=== PATIENT | male | born 1955 | race Caucasian/White ===

== ENCOUNTER 2018-04-22 19:09 | Emergency (ER) | payer MEDICARE ==
[2018-04-22] MEDS ORDERED: solu-MEDROL 125 MG IV ONE (19:48)
[2018-04-22] MEDS ORDERED: BENADRYL 50 MG/ML IM ONE (19:48)
[2018-04-22] MEDS ORDERED: EPINEPHRINE 1MG/ML AMP IM ONE (19:48)
--- NOTE | 2018-04-22 19:53 | ERPHSYRPT ---
- History of Present Illness Time Seen by Provider: 04/22/18 19:36 Source: patient Exam Limitations: no limitations Patient Subjective Stated Complaint: Woke up with swollen bottom lip, at 1800 swelling on agustín jaw, soreness with palpatation, denies eating or exposed to anything new Triage Nursing Assessment: Pt a/o, ambulates per self, agustín swelling in jaw area and bottom lip, denies pain, denies numbness, denies SOB, denies dysphagia, breath sounds clear, Physician History: This is a 62-year-old white male with history of COPD, bronchitis, high blood pressure, GERD, He arrives with complaint of swelling in his lips since this morning now having swelling bilateral lower jaw he is not having any shortness of breath his gave him Benadryl around 3:00 this afternoon. Past medical history includes COPD, bronchitis, high blood pressure, GERD, hernia, arthritis, cardiomyopathy Past surgical history includes cardiac catheterization, hernia repair, vasectomy Social history patient denies tobacco alcohol or illicit drug use Timing/Duration: today (7:00 this morning) Severity: moderate Modifying Factors: Improves With: other (patient took Benadryl 50 mg at around 3 :00 this afternoon) Associated Symptoms: No nausea, No vomiting, No abdominal pain, No shortness of breath, No heartburn, No diaphoresis, No cough, No chills, No chest pain, No fever, No headaches, No loss of appetite, No malaise, No rash, No syncope, No seizure (Illnesses EKG before), No weakness Allergies/Adverse Reactions: oxytetracycline [From Terramycin] Allergy (Verified 02/10/15 22:24) oxytetracycline HCl [From Terramycin] Allergy (Verified 02/10/15 22:24) Home Medications: Aspirin 81 gm Chew [Baby Aspirin 81 mg Chew] 81 mg PO DAILY 02/11/15 [ History] Isosorbide Mononitrate 30 mg [Imdur 30 MG] 30 mg PO DAILY 02/11/15 [History ] Lisinopril 10 mg [Zestril 10 MG] 10 mg PO DAILY 02/11/15 [History] Albuterol Common Canister [Proventil Common Canister] 1 puff IH UD PRN 11/01 [History] Tamsulosin HCl 0.4 mg PO DAILY 04/22/18 [History] Hx Tetanus, Diphtheria Vaccination/Date Given: Yes Hx Influenza Vaccination/Date Given: Yes Hx Pneumococcal Vaccination/Date Given: Yes - Review of Systems Constitutional: No Fever, No Chills Eyes: No Symptoms Ears, Nose, & Throat: No Symptoms, Other (swelling of the lips bilateral lower jaw) Respiratory: No Cough, No Dyspnea Cardiac: No Chest Pain, No Edema, No Syncope Abdominal/Gastrointestinal: No Abdominal Pain, No Nausea, No Vomiting, No Diarrhea Genitourinary Symptoms: No Dysuria Musculoskeletal: No Back Pain, No Neck Pain Skin: No Rash Neurological: No Dizziness, No Focal Weakness, No Sensory Changes Psychological: No Symptoms Endocrine: No Symptoms All Other Systems: Reviewed and Negative (normal limits with a can ) - Past Medical History Pertinent Past Medical History: Yes Neurological History: No Pertinent History ENT History: No Pertinent History Cardiac History: Hypertension Respiratory History: Bronchitis, COPD, Emphysema Endocrine Medical History: No Pertinent History Musculoskeletal History: Arthritis GI Medical History: GERD, Hernia History: No Pertinent History Psycho-Social History: No Pertinent History Male Reproductive Disorders: Prostate Problems Other Medical History: CARDIOMYOPATHY - Past Surgical History Past Surgical History: Yes Neuro Surgical History: No Pertinent History Cardiac: Cardiac Catheterization Respiratory: No Pertinent History Gastrointestinal: Hernia Repair Genitourinary: No Pertinent History Musculoskeletal: No Pertinent History Male Surgical History: Vasectomy Other Surgical History: STRESS TEST ECHO AND HEART CATH inquinal hernia - Social History Smoking Status: Former smoker How long have you smoked: 30 yrs Exposure to second hand smoke: Yes Drug Use: none Patient Lives Alone: No - Nursing Vital Signs Nursing Vital Signs: Initial Vital Signs Temperature 98.4 F 04/22/18 19:17 Pulse Rate 103 H 04/22/18 19:17 Respiratory Rate 22 04/22/18 19:17 Blood Pressure 120/84 04/22/18 19:17 O2 Sat by Pulse Oximetry 98 04/22/18 19:17 Pain Scale Pain Intensity 0 - Physical Exam General Appearance: no apparent distress, alert, other (swelling of the lips and bilateral submandibular region) Eye Exam: PERRL/EOMI, eyes nml inspection Ears, Nose, Throat Exam: pharynx normal, moist mucous membranes, other ( swelling of the lips, bilateral submandibular region) Neck Exam: normal inspection Respiratory Exam: normal breath sounds, lungs clear, No respiratory distress Cardiovascular Exam: regular rate/rhythm, normal heart sounds, normal peripheral pulses, capillary refill <2 sec Gastrointestinal/Abdomen Exam: soft, normal bowel sounds, No tenderness, No mass Back Exam: normal inspection, normal range of motion, No CVA tenderness, No vertebral tenderness Extremity Exam: normal inspection, normal range of motion, pelvis stable Neurologic Exam: alert, oriented x 3, cooperative, validation engineer II-XII nml as tested, normal mood/affect, nml cerebellar function, nml station & gait, sensation nml, No motor deficits Skin Exam: normal color, warm, dry, No rash SpO2 Interpretation: normal (98%), borderline oxygenation SpO2: 98 Oxygen Delivery: Room Air Ordered Tests: Active Orders 24 hr Category Date Time Status EKG-ER Only STAT Care 04/22/18 19:49 Active IV Insertion STAT Care 04/22/18 19:48 Active Medication Summary Generic Name Dose Route Start Last Admin Trade Name Freq PRN Reason Stop Dose Admin Sodium Chloride 1,000 mls @ 100 mls/hr 04/22/18 20:00 04/22/18 20:07 Sodium Chloride 0.9% 1000 Ml IV 05/22/18 19:59 100 mls/hr .Q10H JOHN Administration Discontinued Medications Generic Name Dose Route Start Last Admin Trade Name Freq PRN Reason Stop Dose Admin Diphenhydramine HCl 50 mg 04/22/18 19:48 04/22/18 20:07 Benadryl 50 Mg/Ml IM 04/22/18 19:49 50 mg STAT ONE Administration Diphenhydramine HCl Confirm 04/22/18 20:01 Benadryl 50 Mg/Ml Administered 04/22/18 20:02 Dose 50 mg .ROUTE .STK-MED ONE Epinephrine HCl 0.3 mg 04/22/18 19:48 04/22/18 20:03 Epinephrine 1mg/Ml Amp IM 04/22/18 19:49 0.3 mg STAT ONE Administration Epinephrine HCl Confirm 04/22/18 20:01 Epinephrine 1mg/Ml Amp Administered 04/22/18 20:02 Dose 1 mg .ROUTE .STK-MED ONE Methylprednisolone Sodium Succinate 125 mg 04/22/18 19:48 04/22/18 20:07 Solu-Medrol 125 Mg IV 04/22/18 19:49 125 mg STAT ONE Administration Methylprednisolone Sodium Succinate Confirm 04/22/18 20:01 Solu-Medrol 125 Mg Administered 04/22/18 20:02 Dose 125 mg .ROUTE .STK-MED ONE - Progress Progress: improved Progress Note: 04/22/18 21:12 This is a 62-year-old white male with history of COPD bronchitis, high blood pressure. He arrives with complaint of swelling of his lips since this morning and swelling in the bilateral submandibular area since this afternoon. Patient is on lisinopril he also states he ate a turn up last night. Patient with moderate edema to his lips airway was clear he did have some edema bilateral submandibular region. Patient's EKG sinus rhythm, left axis deviation [address] or T wave changes. Patient is given IV normal saline at 100 mL per hour he is given Solu-Medrol 125 mg IV Benadryl 50 mg IM and epinephrine 0.3 mg IM. He is feeling better he has a decreasing edema to his lips and to his bilateral submandibular area. Tongue does not appear to be swollen or at least with minimal swelling airway is clear. Will plan to discharge patient. I have told the patient not to eat anymore turnips. I've also told him to not take anymore lisinopril. Diagnosis facial swelling. Angioedema. Patient will be requested to take Benadryl 50 mg orally every 6 hours for 2-3 days, plenty of fluids, stop lisinopril. He is to contact Dr. Figueroa tomorrow morning. He is to return if any problems. - Departure Time of Disposition: 21:14 Departure Disposition: Home Clinical Impression: Facial swelling Angioedema Qualifiers: Encounter type: initial encounter Qualified Code(s): T78.3XXA - Angioneurotic edema, initial encounter Condition: Fair Critical Care Time: No Referrals: DOROTA FIGUEROA MD [Primary Care Provider] - Additional Instructions: Return home. Plenty of fluids. Benadryl 50 mg every 6 hours for 2-3 days. Tapering dose of prednisone as directed. Do not take any lisinopril until you discuss case with Dr. Figueroa. Do not eat anymore turnips. Return for any problems. Follow-up with Dr. Figueroa call in the morning return for acute distress or severe symptoms or any problems or any increasing swelling or difficulty breathing.
[2018-04-22] MEDS ORDERED: Sodium Chloride 0.9% 1000 ML 1,000 ML IV SCH (20:00)
[2018-04-22] MEDS ORDERED: Sodium Chloride 0.9% 1000 ML 1,000 ML ONE (20:01)
[2018-04-22] MEDS ORDERED: EPINEPHRINE 1MG/ML AMP ONE (20:01)
[2018-04-22] MEDS ORDERED: BENADRYL 50 MG/ML ONE (20:01)
[2018-04-22] MEDS ORDERED: solu-MEDROL 125 MG ONE (20:01)
[2018-04-22 21:05] VITALS: BP 120/70
[2018-04-22 21:24] VITALS: PULSE 92; O2SAT 95
== END 2018-04-22 21:34 | disposition home or self-care (01) ==
LOC: ED 19:09
DX: T78.3XXA Angioneurotic edema, initial encounter (principal); R22.0 Localized swelling, mass and lump, head; I10 Essential (primary) hypertension; Z79.899 Other long term (current) drug therapy
CPT/HCPCS: 93005; 96360; 96372; 96374; 99284; J0171; J1200; J2930

== ENCOUNTER 2019-03-15 16:14 | Emergency (ER) | payer MEDICARE ==
--- NOTE | 2019-03-15 16:18 | ERPHSYRPT ---
- History of Present Illness Time Seen by Provider: 03/15/19 16:18 Source: patient, family Exam Limitations: no limitations Physician History: 63 y/o white male with h/o htn and copd presents with 4 week h/o left flank pain and left lower lumbar pain. pt has had a normal cardiac cath in recent past. yesterday he was experiencing chest pain and that has resolved. Timing/Duration: week(s) (4 ), intermittent, worse Method of Injury: unknown Quality: radiating Back Pain Location: lumbar spine Severity of Pain-Max: moderate Severity of Pain-Current: moderate Associated Symptoms: lower back pain Previous symptoms: same symptoms as today Allergies/Adverse Reactions: lisinopril Allergy (Verified 03/15/19 20:16) oxytetracycline [From Terramycin] Allergy (Verified 03/15/19 16:25) oxytetracycline HCl [From Terramycin] Allergy (Verified 03/15/19 16:25) Home Medications: Aspirin 81 gm Chew [Baby Aspirin 81 mg Chew] 81 mg PO DAILY 02/11/15 [ History] Isosorbide Mononitrate 30 mg [Imdur 30 MG] 30 mg PO DAILY 02/11/15 [History ] Lisinopril 10 mg [Zestril 10 MG] 10 mg PO DAILY 02/11/15 [History] Albuterol Common Canister [Proventil Common Canister] 1 puff IH UD PRN 11/01 [History] Tamsulosin HCl 0.4 mg PO DAILY 04/22/18 [History] Hx Tetanus, Diphtheria Vaccination/Date Given: Yes Hx Influenza Vaccination/Date Given: Yes Hx Pneumococcal Vaccination/Date Given: Yes - Review of Systems Constitutional: No Symptoms Eyes: No Symptoms Ears, Nose, & Throat: No Symptoms Respiratory: No Symptoms Cardiac: Chest Pain Abdominal/Gastrointestinal: No Symptoms Genitourinary Symptoms: No Symptoms Musculoskeletal: Back Pain Skin: No Symptoms Neurological: No Symptoms Psychological: No Symptoms Endocrine: No Symptoms Hematologic/Lymphatic: No Symptoms Immunological/Allergic: No Symptoms All Other Systems: Reviewed and Negative - Past Medical History Pertinent Past Medical History: Yes Neurological History: No Pertinent History ENT History: No Pertinent History Cardiac History: Hypertension Respiratory History: Bronchitis, COPD, Emphysema Endocrine Medical History: No Pertinent History Musculoskeletal History: Arthritis GI Medical History: GERD, Hernia History: No Pertinent History Psycho-Social History: No Pertinent History Male Reproductive Disorders: Prostate Problems Other Medical History: CARDIOMYOPATHY - Past Surgical History Past Surgical History: Yes Neuro Surgical History: No Pertinent History Cardiac: Cardiac Catheterization Respiratory: No Pertinent History Gastrointestinal: Hernia Repair Genitourinary: No Pertinent History Musculoskeletal: No Pertinent History Male Surgical History: Vasectomy Other Surgical History: STRESS TEST ECHO AND HEART CATH inquinal hernia - Social History Smoking Status: Former smoker How long have you smoked: 30 yrs Exposure to second hand smoke: Yes Drug Use: none Patient Lives Alone: No - Nursing Vital Signs Nursing Vital Signs: Initial Vital Signs Pulse Rate 143 H 03/15/19 16:16 Respiratory Rate 16 03/15/19 16:16 Blood Pressure 151/92 03/15/19 16:16 O2 Sat by Pulse Oximetry 95 03/15/19 16:16 Pain Scale Pain Intensity [Left Back] 5 Pain Intensity 4 - Physical Exam General Appearance: mild distress, alert, anxiety Eye Exam: PERRL/EOMI, eyes nml inspection Ears, Nose, Throat Exam: normal ENT inspection, moist mucous membranes Neck Exam: normal inspection, non-tender, supple, full range of motion Respiratory Exam: normal breath sounds, lungs clear, airway intact, No chest tenderness, No respiratory distress Cardiovascular Exam: regular rate/rhythm, normal heart sounds, normal peripheral pulses Gastrointestinal Exam: soft, normal bowel sounds, No tenderness Rectal Exam: not done Extremity Exam: normal inspection, normal range of motion, pelvis stable Neurologic Exam: alert, oriented x 3, cooperative, national sales executive II-XII nml as tested, normal mood/affect, nml cerebellar function Skin Exam: normal color, warm, dry Lymphatic Exam: No adenopathy SpO2 Interpretation: normal O2 Delivery: Room Air - Course Nursing assessment & vital signs reviewed: Yes EKG Interpreted by Me: RATE (110), Sinus Rhythm, NORMAL AXIS, NORMAL INTERVALS, NORMAL QRS, Other (compared to ekg dated 04/22/18 new tachycardia, left axix deviation resolved. ) Ordered Tests: Active Orders 24 hr Category Date Time Status EKG-ER Only STAT Care 03/15/19 16:43 Active IV Insertion STAT Care 03/15/19 16:43 Active ABDOMEN AND PELVIS W/0 CONTRAS [CT] Stat Exams 03/15/19 16:43 Taken CHEST WITH CONTRAST [CT] Stat Exams 03/15/19 19:53 Ordered BMP Stat Lab 03/15/19 19:24 Completed CBC W DIFF Stat Lab 03/15/19 16:51 Completed CMP Stat Lab 03/15/19 16:51 Completed D-DIMER QUANTITATION Stat Lab 03/15/19 17:13 Completed Manual Differential NC Stat Lab 03/15/19 16:51 Completed NT PRO BNP Stat Lab 03/15/19 16:51 Completed TROPONIN Q3H Lab 03/15/19 16:51 Completed TROPONIN Q3H Lab 03/15/19 19:24 Completed TROPONIN Q3H Lab 03/15/19 22:45 Ordered TROPONIN Q3H Lab 03/16/19 01:45 Ordered TROPONIN Q3H Lab 03/16/19 04:45 Ordered UA W/RFX UR CULTURE Stat Lab 03/15/19 17:14 Completed Medication Summary Generic Name Dose Route Start Last Admin Trade Name Freq PRN Reason Stop Dose Admin Sodium Chloride 1,000 mls @ 100 mls/hr 03/15/19 17:45 03/15/19 17:48 Sodium Chloride 0.9% 1000 Ml IV 04/14/19 17:44 100 mls/hr .Q10H JOHN Administration Discontinued Medications Generic Name Dose Route Start Last Admin Trade Name Freq PRN Reason Stop Dose Admin Morphine Sulfate 4 mg 03/15/19 16:43 03/15/19 17:15 Morphine Sulfate 4 Mg Inj IV 03/15/19 16:44 4 mg STAT ONE Administration Morphine Sulfate Confirm 03/15/19 16:50 Morphine Sulfate 4 Mg Inj Administered 03/15/19 16:51 Dose 4 mg .ROUTE .STK-MED ONE Morphine Sulfate 4 mg 03/15/19 20:52 03/15/19 21:09 Morphine Sulfate 4 Mg Inj IV 03/15/19 20:53 4 mg STAT ONE Administration Morphine Sulfate Confirm 03/15/19 21:05 Morphine Sulfate 4 Mg Inj Administered 03/15/19 21:06 Dose 4 mg .ROUTE .STK-MED ONE Ondansetron HCl 4 mg 03/15/19 16:43 03/15/19 17:13 Zofran 4 Mg/2 Ml Vial IV 03/15/19 16:44 4 mg STAT ONE Administration Ondansetron HCl Confirm 03/15/19 16:50 Zofran 4 Mg/2 Ml Vial Administered 03/15/19 16:51 Dose 4 mg .ROUTE .STK-MED ONE Lab/Rad Data: Laboratory Result Diagrams 03/15/19 16:51 03/15/19 19:24 Laboratory Results 03/15/19 03/15/19 03/15/19 Range/Units 19:24 19:24 17:14 WBC (4.0-10.5) K/mm3 RBC (4.1-5.6) M/mm3 Hgb (12.5-18.0) gm/dl Hct (42-50) % MCV (78-100) fl MCH (26-32) pg MCHC (32-36) g/dl RDW (11.5-14.0) % Plt Count (150-450) K/mm3 MPV (6-9.5) fl Segmented Neutrophils (36.-66.) % Band Neutrophils (0.0-2.0) % Lymphocytes (Manual) (24-44) % Monocytes (Manual) (0.0-12.0) % Eosinophils (Manual) (0.00-3.0) % Basophils (Manual) (0.0-1.0) % Metamyelocytes % Platelet Estimate (NORMAL) RBC Morphology D-Dimer (215-500) ng/mL Sodium 139 (137-145) mmol/L Potassium 4.4 (3.5-5.1) mmol/L Chloride 107 (98-107) mmol/L Carbon Dioxide 25 (22-30) mmol/L Anion Gap 11.5 (5-15) MEQ/L BUN 23 H (9-20) mg/dL Creatinine 1.40 H (0.66-1.25) mg/dL Estimated GFR 54.1 ML/MIN Glucose 97 (74-106) mg/dL Calcium 8.2 L (8.4-10.2) mg/dL Total Bilirubin (0.2-1.3) mg/dL AST (17-59) U/L ALT (0-50) U/L Alkaline Phosphatase (38-126) U/L Troponin I < 0.012 (0.000-0.034) ng/mL NT-Pro-B Natriuret Pep (0-900) pg/mL Serum Total Protein (6.3-8.2) g/dL Albumin (3.5-5.0) g/dL Urine Color YELLOW (YELLOW) Urine Appearance CLEAR (CLEAR) Urine pH 5.0 (5-6) Ur Specific [place] 1.025 (1.005-1.025) Urine Protein NEGATIVE (Negative) Urine Ketones NEGATIVE (NEGATIVE) Urine Blood NEGATIVE (0-5) Ryan/ul Urine Nitrite NEGATIVE (NEGATIVE) Urine Bilirubin NEGATIVE (NEGATIVE) Urine Urobilinogen 4 (0-1) mg/dL Ur Leukocyte Esterase NEGATIVE (NEGATIVE) Urine WBC (Auto) NONE (0-5) /HPF Urine RBC (Auto) 0-2 (0-2) /HPF U Epithel Cells (Auto) NONE (FEW) /HPF Urine Bacteria (Auto) NONE SEEN (NEGATIVE) /HPF Urine Mucus (Auto) SLIGHT (NEGATIVE) /HPF Urine Culture Reflexed NO (NO) Urine Glucose NEGATIVE (NEGATIVE) mg/dL 03/15/19 03/15/19 03/15/19 Range/Units 17:13 16:51 16:51 WBC (4.0-10.5) K/mm3 RBC (4.1-5.6) M/mm3 Hgb (12.5-18.0) gm/dl Hct (42-50) % MCV (78-100) fl MCH (26-32) pg MCHC (32-36) g/dl RDW (11.5-14.0) % Plt Count (150-450) K/mm3 MPV (6-9.5) fl Segmented Neutrophils (36.-66.) % Band Neutrophils (0.0-2.0) % Lymphocytes (Manual) (24-44) % Monocytes (Manual) (0.0-12.0) % Eosinophils (Manual) (0.00-3.0) % Basophils (Manual) (0.0-1.0) % Metamyelocytes % Platelet Estimate (NORMAL) RBC Morphology D-Dimer 1316 H* (215-500) ng/mL Sodium 140 (137-145) mmol/L Potassium 4.3 (3.5-5.1) mmol/L Chloride 105 (98-107) mmol/L Carbon Dioxide 26 (22-30) mmol/L Anion Gap 13.6 (5-15) MEQ/L BUN 24 H (9-20) mg/dL Creatinine 1.51 H (0.66-1.25) mg/dL Estimated GFR 49.5 ML/MIN Glucose 92 (74-106) mg/dL Calcium 9.1 (8.4-10.2) mg/dL Total Bilirubin 1.10 (0.2-1.3) mg/dL AST 26 (17-59) U/L ALT 21 (0-50) U/L Alkaline Phosphatase 68 (38-126) U/L Troponin I < 0.012 (0.000-0.034) ng/mL NT-Pro-B Natriuret Pep 387 (0-900) pg/mL Serum Total Protein 8.4 H (6.3-8.2) g/dL Albumin 4.0 (3.5-5.0) g/dL Urine Color (YELLOW) Urine Appearance (CLEAR) Urine pH (5-6) Ur Specific [place] (1.005-1.025) Urine Protein (Negative) Urine Ketones (NEGATIVE) Urine Blood (0-5) Ryan/ul Urine Nitrite (NEGATIVE) Urine Bilirubin (NEGATIVE) Urine Urobilinogen (0-1) mg/dL Ur Leukocyte Esterase (NEGATIVE) Urine WBC (Auto) (0-5) /HPF Urine RBC (Auto) (0-2) /HPF U Epithel Cells (Auto) (FEW) /HPF Urine Bacteria (Auto) (NEGATIVE) /HPF Urine Mucus (Auto) (NEGATIVE) /HPF Urine Culture Reflexed (NO) Urine Glucose (NEGATIVE) mg/dL 03/15/19 Range/Units 16:51 WBC 10.7 H (4.0-10.5) K/mm3 RBC 4.60 (4.1-5.6) M/mm3 Hgb 13.2 (12.5-18.0) gm/dl Hct 40.7 L (42-50) % MCV 88.5 (78-100) fl MCH 28.7 (26-32) pg MCHC 32.4 (32-36) g/dl RDW 14.9 H (11.5-14.0) % Plt Count 326 (150-450) K/mm3 MPV 9.8 H (6-9.5) fl Segmented Neutrophils 61 (36.-66.) % Band Neutrophils 7 H (0.0-2.0) % Lymphocytes (Manual) 23 L (24-44) % Monocytes (Manual) 1 (0.0-12.0) % Eosinophils (Manual) 5 H (0.00-3.0) % Basophils (Manual) 1 (0.0-1.0) % Metamyelocytes 2 % Platelet Estimate NORMAL (NORMAL) RBC Morphology NORMAL D-Dimer (215-500) ng/mL Sodium (137-145) mmol/L Potassium (3.5-5.1) mmol/L Chloride (98-107) mmol/L Carbon Dioxide (22-30) mmol/L Anion Gap (5-15) MEQ/L BUN (9-20) mg/dL Creatinine (0.66-1.25) mg/dL Estimated GFR ML/MIN Glucose (74-106) mg/dL Calcium (8.4-10.2) mg/dL Total Bilirubin (0.2-1.3) mg/dL AST (17-59) U/L ALT (0-50) U/L Alkaline Phosphatase (38-126) U/L Troponin I (0.000-0.034) ng/mL NT-Pro-B Natriuret Pep (0-900) pg/mL Serum Total Protein (6.3-8.2) g/dL Albumin (3.5-5.0) g/dL Urine Color (YELLOW) Urine Appearance (CLEAR) Urine pH (5-6) Ur Specific [place] (1.005-1.025) Urine Protein (Negative) Urine Ketones (NEGATIVE) Urine Blood (0-5) Ryan/ul Urine Nitrite (NEGATIVE) Urine Bilirubin (NEGATIVE) Urine Urobilinogen (0-1) mg/dL Ur Leukocyte Esterase (NEGATIVE) Urine WBC (Auto) (0-5) /HPF Urine RBC (Auto) (0-2) /HPF U Epithel Cells (Auto) (FEW) /HPF Urine Bacteria (Auto) (NEGATIVE) /HPF Urine Mucus (Auto) (NEGATIVE) /HPF Urine Culture Reflexed (NO) Urine Glucose (NEGATIVE) mg/dL - Progress Progress: improved, pain not gone completely, re-examined Progress Note: 03/15/19 21:44 ct abd/pelvis-no acute process; cta chest-no pulm emboli and no acute process Counseled pt/family regarding: lab results, diagnosis, need for follow-up, rad results - Departure Departure Disposition: Home Clinical Impression: Back pain Condition: Stable Critical Care Time: No Referrals: HENRY,DOROTA, MD [Primary Care Provider] - Additional Instructions: drink plenty of fluids. follow up with primary doctor for further management Prescriptions: Hydrocodone/APAP 5-325 Tab^^^ [Ambia 5-325 Tablet^^^] 1 tab PO Q8H PRN PRN #8 tablet MDD 3 PRN Reason: Pain
[2019-03-15] MEDS ORDERED: Zofran 4 MG/2 ML VIAL IV ONE (16:43)
[2019-03-15] MEDS ORDERED: MORPHINE SULFATE 4 MG INJ IV ONE ×2 (16:43→20:52)
[2019-03-15] MEDS ORDERED: MORPHINE SULFATE 4 MG INJ ONE ×2 (16:50→21:05)
[2019-03-15] MEDS ORDERED: Zofran 4 MG/2 ML VIAL ONE (16:50)
[2019-03-15 16:55] LABS: Hematocrit 40.7 % (42-50); Hemoglobin 13.2 gm/dl (12.5-18.0); Mean Cell Volume 88.5 fl (78-100); Mean Corpuscular Hemoglobin 28.7 pg (26-32); Mean Corpuscular Hgb Concent. 32.4 g/dl (32-36); Mean Platelet Volume 9.8 fl (6-9.5); Platelet Count 326 K/mm3 (150-450); Red Cell Distribution Width 14.9 % (11.5-14.0); White Blood Count 10.7 K/mm3 (4.0-10.5)
[2019-03-15 17:15] LABS: ANION GAP 13.6 MEQ/L (5-15); BILIRUBIN,TOTAL 1.1 mg/dL (0.2-1.3); Calcium 9.1 mg/dL (8.4-10.2); Creatinine 1 1.51 mg/dL (0.66-1.25); Potassium 4.3 mmol/L (3.5-5.1); Total Protein 8.4 g/dL (6.3-8.2)
[2019-03-15 17:20] LABS: Appearance CLEAR (CLEAR); Bilirubin NEGATIVE (NEGATIVE); Blood NEGATIVE Ery/ul (0-5); Glucose NEGATIVE (NEGATIVE); Ketones NEGATIVE (NEGATIVE); Leukocyte Esterase NEGATIVE (NEGATIVE); Mucus SLIGHT /HPF (NEGATIVE); Nitrite NEGATIVE (NEGATIVE); Protein,Urine Dip NEGATIVE (Negative); RBC 0-2 /HPF (0-2); Specific Gravity 1.025 (1.005-1.025); Urobilinogen 4 mg/dL (0-1)
[2019-03-15 17:26] LABS: Bacteria NONE SEEN /HPF (NEGATIVE)
[2019-03-15 17:39] LABS: BAND 7 % (0.0-2.0); Basophil 1 % (0.0-1.0); Eosinophil 5 % (0.00-3.0); Lymphocytes 23 % (24-44); Metamyelocyte 2 %; Monocyte 1 % (0.0-12.0); Neutrophils 61 % (36.-66.); Platelet Estimate NORMAL (NORMAL); Total Cells Counted 100
[2019-03-15] MEDS ORDERED: Sodium Chloride 0.9% 1000 ML 1,000 ML IV SCH (17:45)
[2019-03-15] MEDS ORDERED: Sodium Chloride 0.9% 1000 ML 1,000 ML ONE (17:45)
[2019-03-15 19:36] VITALS: O2SAT 95
[2019-03-15 19:39] LABS: ANION GAP 11.5 MEQ/L (5-15); Calcium 8.2 mg/dL (8.4-10.2); Creatinine 1 1.4 mg/dL (0.66-1.25); Potassium 4.4 mmol/L (3.5-5.1)
[2019-03-15 21:52] VITALS: BP 129/72; PULSE 96
--- NOTE | 2019-03-16 07:45 | XRAY ---
Indication: Short of breath. Left abdomen/flank pain 4 weeks. Elevated d-dimer. Multiple contiguous axial images obtained through the chest using 80 cc Isovue 370 contrast and PE protocol. Comparison: 01/01/19. There is adequate opacification of the pulmonary arteries to include the lobar and segmental branches. No filling defect or pulmonary embolus. Heart is not enlarged. New small pericardial effusion/thickening. Aorta is normal in course and caliber. A few small mediastinal lymph nodes, largest distal right paratracheal measuring 2.2 x 1.3 cm unchanged. Also stable right hilar calcified lymph nodes and small hiatal hernia. Examination of the lungs demonstrates stable pulmonary emphysema, fibrosis/scarring, and mild bronchiectasis greatest in both upper lobes. Minimal bilateral dependent atelectasis. Small right lower lobe calcified granuloma unchanged. No consolidation or effusion. Bony thorax intact with mild degenerative changes throughout the spine. CT abdomen report separately. Impression: 1. Negative pulmonary embolus. 2. Stable pulmonary emphysema, bronchiectasis, scattered fibrosis/scarring, small hiatal hernia, and evidence for old granulomatous disease. 3. New small pericardial effusion/thickening better evaluated with echocardiogram. Comment: Preliminary interpretation was made by [facility]. No critical discrepancy. CTDI 25.78
--- NOTE | 2019-03-17 09:01 | XRAY ---
Indication: Left abdomen/flank pain 4 weeks. Multiple contiguous axial images obtained through the abdomen and pelvis without contrast as ordered. Comparison: None CT chest report separately. Noncontrasted stomach and bowel loops appear nonobstructed. Normal appendix. Mild diffuse scattered colonic fecal debris throughout and sigmoid diverticulosis. No free fluid/air. 1 cm left mid renal angiomyolipoma. 21.2 cm fatty hepatomegaly and a few tiny calcified splenic granulomas. Remaining liver, gallbladder, pancreas, spleen, adrenal glands, kidneys, ureters, and bladder appear unremarkable for noncontrasted exam. Minimal aortoiliac calcifications without AAA. Osseous structures intact with mild/moderate degenerative changes throughout the spine. Bilateral L5 spondylolysis with 4-5 mm spondylolisthesis. Impression: 1. Fecal stasis without obstruction and colonic diverticulosis. 2. 1 cm left renal angiomyolipoma. 3. Fatty hepatomegaly and evidence for old granulomatous disease. 4. Multilevel degenerative spondylosis and L5 spondylolysis with grade 1 spondylolisthesis Comment: Preliminary interpretation was made by [facility]. No critical discrepancy. CTDI 20.80
== END 2019-03-15 22:03 | disposition home or self-care (01) ==
LOC: ED 16:14
DX: R10.9 Unspecified abdominal pain (principal); M54.5 Low back pain; J44.9 Chronic obstructive pulmonary disease, unspecified; Z79.899 Other long term (current) drug therapy; I10 Essential (primary) hypertension
CPT/HCPCS: 36000; 36415; 71260; 74176; 80048; 80053; 81001; 83880; 84484; 85025; 85379; 93005; 96360; 96361; 96374; 96375; 96376; 99284; J2270; J2405

== ENCOUNTER 2019-11-30 15:38 | Emergency (ER) | payer MEDICARE ==
--- NOTE | 2019-11-30 16:20 | ERPHSYRPT ---
- History of Present Illness Time Seen by Provider: 11/30/19 16:18 Source: patient Exam Limitations: no limitations Patient Subjective Stated Complaint: Sore throat Triage Nursing Assessment: Patient ambulated back to ED and transferred self to bed. Patient A+O X3. Patient's skin pink, warm and dry. Patient complains of sore throat for 7 days. Patient states pain is constant, sharp and throbbing pain 10/10. Patient denies fever. Lungs clear a/p agustín. Physician History: Patient complains of sore throat for 7 days. Patient states pain is constant, sharp and throbbing pain 10/10. Patient denies fever. Timing/Duration: day(s) (7-10 days) Cough Quality/Degree: no cough Associated Symptoms: sore throat, No fever, No chills, No chest pain/soreness, No cough, No muscle aches, No nasal congestion, No nasal drainage, No shortness of breath, No wheezing Allergies/Adverse Reactions: lisinopril Allergy (Verified 11/30/19 15:59) oxytetracycline [From Terramycin] Allergy (Verified 11/30/19 15:59) oxytetracycline HCl [From Terramycin] Allergy (Verified 11/30/19 15:59) Home Medications: Aspirin 81 gm Chew [Baby Aspirin 81 mg Chew] 81 mg PO DAILY 02/11/15 [History] Isosorbide Mononitrate 30 mg [Imdur 30 MG] 30 mg PO DAILY 02/11/15 [History] Lisinopril 10 mg [Zestril 10 MG] 10 mg PO DAILY 02/11/15 [History] Albuterol Common Canister [Ventolin Common Canister] 1 puff IH UD PRN 04/22/18 [History] Tamsulosin HCl 0.4 mg PO DAILY 04/22/18 [History] Hx Tetanus, Diphtheria Vaccination/Date Given: Yes Hx Influenza Vaccination/Date Given: Yes Hx Pneumococcal Vaccination/Date Given: Yes Immunizations Up to Date: Yes Travel Risk - International Travel Have you traveled outside of the country in past 3 weeks: No - Coronavirus Screening Are you exhibiting any of the following symptoms?: No Close contact with a COVID-19 positive Pt in past 14-21 Days: No - Review of Systems Constitutional: No Fever, No Chills Eyes: No Symptoms Ears, Nose, & Throat: No Symptoms, Throat Pain Respiratory: No Cough, No Dyspnea Cardiac: No Chest Pain, No Edema, No Syncope Abdominal/Gastrointestinal: No Abdominal Pain, No Nausea, No Vomiting, No Diarrhea Genitourinary Symptoms: No Dysuria Musculoskeletal: No Back Pain, No Neck Pain Skin: No Rash Neurological: No Dizziness, No Focal Weakness, No Sensory Changes Psychological: No Symptoms Endocrine: No Symptoms All Other Systems: Reviewed and Negative - Past Medical History Pertinent Past Medical History: Yes Neurological History: No Pertinent History ENT History: No Pertinent History Cardiac History: Hypertension Respiratory History: Bronchitis, COPD, Emphysema Endocrine Medical History: No Pertinent History Musculoskeletal History: Arthritis GI Medical History: GERD, Hernia History: No Pertinent History Psycho-Social History: No Pertinent History Male Reproductive Disorders: Prostate Problems Other Medical History: CARDIOMYOPATHY - Past Surgical History Past Surgical History: Yes Neuro Surgical History: No Pertinent History Cardiac: Cardiac Catheterization Respiratory: No Pertinent History Gastrointestinal: Hernia Repair Genitourinary: No Pertinent History Musculoskeletal: No Pertinent History Male Surgical History: Vasectomy Other Surgical History: STRESS TEST ECHO AND HEART CATH inquinal hernia - Social History Smoking Status: Former smoker How long have you smoked: 30 yrs Exposure to second hand smoke: Yes Drug Use: none Patient Lives Alone: No - Nursing Vital Signs Nursing Vital Signs: Initial Vital Signs Pulse Rate 105 H 11/30/19 16:00 Respiratory Rate 18 11/30/19 16:00 Blood Pressure 134/81 11/30/19 16:00 O2 Sat by Pulse Oximetry 95 11/30/19 16:00 Pain Scale Pain Intensity 10 - Physical Exam General Appearance: no apparent distress, alert Eye Exam: PERRL/EOMI, eyes nml inspection Ears, Nose, Throat Exam: normal ENT inspection, TMs normal, moist mucous membranes, pharyngeal erythema Neck Exam: normal inspection, non-tender, supple, full range of motion Respiratory Exam: normal breath sounds, lungs clear, No respiratory distress Cardiovascular Exam: regular rate/rhythm, normal heart sounds Gastrointestinal/Abdomen Exam: soft, No tenderness Back Exam: normal inspection, No CVA tenderness, No vertebral tenderness Extremity Exam: normal inspection, normal range of motion Neurologic Exam: alert, oriented x 3, cooperative, normal mood/affect, sensation nml, No motor deficits Skin Exam: normal color, warm, dry, No rash Lymphatic Exam: No adenopathy SpO2: 95 - Course Nursing assessment & vital signs reviewed: Yes Lab/Rad Data: Laboratory Results 11/30/19 Range/Units 17:03 Group A Strep Antibody NOT DETECTED (NEGATIVE) - Progress Progress: unchanged Air Movement: good - Departure Departure Disposition: Home Clinical Impression: Pharyngitis Qualifiers: Pharyngitis/tonsillitis etiology: other specified organisms Qualified Code(s): J02.8 - Acute pharyngitis due to other specified organisms Condition: Stable Critical Care Time: No Referrals: DOROTA FIGUEROA MD [Primary Care Provider] - Instructions: Viral Pharyngitis (DC) Additional Instructions: Discharge/Care Plan ALEXEY FARMER was seen on 11/30/19 in the Emergency Room. The patient was counseled regarding Diagnosis,Lab results, Imaging studies, need for follow up and when to return to the Emergency Room. Prescriptions given: Discharge Note I have spoken with the patient and/or caregivers. I have explained the patient's condition, diagnosis and treatment plan based on the information available to me at this time. I have answered the patient's and/or caregiver's questions and addressed any concerns. The patient and/or caregivers have as good understanding of the patient's diagnosis, condition and treatment plan as can be expected at this point. The vital signs have been stable. The patient's condition is stable and appropriate for discharge from the emergency department. The patient will pursue further outpatient evaluation with the primary care physician or other designated or consulting physician as outlined in the discharge instructions. The patient and/or caregivers are agreeable to this plan of care and follow-up instructions have been explained in detail. The patient and/or caregivers have received these instruction. The patient/and or caregivers are aware that any significant change in condition or worsening of symptoms should prompt an immediate return to this or the closest emergency department or call 911. Prescriptions: Benzonatate [Tessalon Perle] 100 mg PO QID #40 capsule
[2019-11-30 17:28] VITALS: BP 128/86; PULSE 92; O2SAT 98
== END 2019-11-30 18:02 | disposition home or self-care (01) ==
LOC: ED 15:38
DX: J02.8 Acute pharyngitis due to other specified organisms (principal)
CPT/HCPCS: 87651; 99283

== ENCOUNTER 2022-10-31 06:39 | Day surgery (SDC) | payer MEDICARE ==
[2022-10-31] MEDS ORDERED: Epinephrine Preservative Free 1 MG/ML IJ ONE (06:40)
[2022-10-31] MEDS ORDERED: Lactated Ringers 1,000 ML IV ONE ×3 (06:58→10:07)
[2022-10-31] MEDS ORDERED: NON-FORMULARY ITEM OP ONE (07:00)
[2022-10-31] MEDS ORDERED: BETADINE 5% OPHTHALMIC 30 ML OP ONE (07:00)
[2022-10-31] MEDS ORDERED: Ak-Dilate OPHTHALMIC*** 1.065 ML, Cyclogyl 1% OPHTH SOL 1.065 ML, GATIFLOXACIN 0.5% OPH... OP ONE ×4 (07:00)
[2022-10-31] MEDS ORDERED: TETRACAINE 0.5% STERI-UNIT SOL OP ONE ×2 (07:00)
[2022-10-31] MEDS ORDERED: Lactated Ringers 1,000 ML IV SCH (07:00)
[2022-10-31] MEDS ORDERED: cefUROXime sodium 0.005 GM in Sodium Chloride Flush 30 ML*** 0.5 ML IJ ONE (07:00)
[2022-10-31] MEDS ORDERED: DUONEB 0.5-3 MG/3 ml Neb IH ONE ×2 (07:27→07:45)
[2022-10-31] MEDS ORDERED: ACETAZOLAMIDE 250 MG TABLET PO ONE (09:00)
[2022-10-31] MEDS ORDERED: Zofran 4 MG/2 ML VIAL IV PRN (09:00)
[2022-10-31] MEDS ORDERED: DIPRIVAN 200 MG/20 ML IV ONE ×3 (09:43→09:56)
[2022-10-31] MEDS ORDERED: ROBINUL ONE (09:51)
[2022-10-31] MEDS ORDERED: Xylocaine-Mpf 2% 5 Ml Vial ONE (09:51)
[2022-10-31 10:30] VITALS: BP 118/67; PULSE 84; O2SAT 92
== END 2022-10-31 10:40 | disposition home or self-care (01) ==
LOC: SDC 06:39
PROVIDERS: ATTEND Ophthalmology
DX: H25.812 Combined forms of age-related cataract, left eye (principal)
CPT/HCPCS: 94640; C1780; J0171; J2704; A9270-GY

== ENCOUNTER 2022-12-24 15:46 | Emergency (ER) | payer MEDICARE ==
[2022-12-24 17:39] VITALS: TEMP 97.8
[2022-12-24 18:29] LABS: Appearance Clear (Clear); Bacteria None Seen /HPF (None Seen); Bilirubin Negative (Negative); Blood Negative (Negative); Epithelial Cells None Seen /HPF (None Seen); Glucose, Urine Negative (Negative); Hyaline Casts NONE SEEN /LPF (0-2); Ketones Negative (Negative); Leukocyte Esterase Negative (Negative); Nitrite Negative (Negative); Ph 5.5 (4.6-8.0); Protein,Urine Dip Negative (Negative); RBC 0-2 /HPF (0-5); WBC 0-2 /HPF (0-5)
[2022-12-24 18:30] LABS: ADD URINE CULTURE? NO (NO)
--- NOTE | 2022-12-24 20:55 | ERPHSYRPT ---
- History of Present Illness Time Seen by Provider: 12/24/22 20:50 Source: patient, family Exam Limitations: no limitations Patient Subjective Stated Complaint: PT states "Ever since I had cataract surgery last week I have been swelling in my hands, neck and shoulders." Triage Nursing Assessment: Pt presented alert and oriented X 3, skin pwd. Pt ambulates with an uprgith steady gait, able to speak in full sentences. PT has swelling noted lateral neck to collar bone. PT also stated tenderness to both wrists. Physician History: pt has 3 week hx of swelling of hands and neck and pain in collar bone and arms - no trauma. no swelling in feet or SOBreath. No chest or abd pain. Normal exam and neuro and mental status except for swelling. seeing pt was delayed by multiple chest pain acutes and visit is protracted therefore. Confirmed Hx by independent interview with . Discussed risks and benefits of CT and CNC. CMP sed rate, UA with pt and and they wish to proceed. these were ordered and results discused. Timing/Duration: week(s) Severity: moderate Associated Symptoms: denies symptoms Allergies/Adverse Reactions: lisinopril Allergy (Verified 10/31/22 06:56) oxytetracycline [From Terramycin] Allergy (Verified 10/31/22 06:56) oxytetracycline HCl [From Terramycin] Allergy (Verified 10/31/22 06:56) Home Medications: Aspirin 81 gm Chew [Baby Aspirin 81 mg Chew] 81 mg PO DAILY 02/11/15 [History] Isosorbide Mononitrate 30 mg [Imdur 30 MG] 30 mg PO DAILY 02/11/15 [History] Albuterol Common Canister [Ventolin Common Canister] 1 puff IH UD PRN 04/22/18 [History] Tamsulosin HCl 0.4 mg PO DAILY 04/22/18 [History] Amlodipine Besylate 5 mg [Norvasc 5 mg] 10 mg PO DAILY 10/23/22 [History] Fluticasone/Umeclidin/Vilanter [Trelegy Ellipta 100-62.5-25] 1 puff HE DAILY 10/23/22 [History] Ipratropium/Albuterol Sulfate [Combivent Respimat Common Canister] 1 puff IH QID 10/23/22 [History] Nintedanib Esylate [Ofev] 100 mg PO UD 10/23/22 [History] Omeprazole 20 mg PO DAILY 10/23/22 [History] Hx Tetanus, Diphtheria Vaccination/Date Given: Yes Hx Influenza Vaccination/Date Given: Yes Hx Pneumococcal Vaccination/Date Given: Yes Immunizations Up to Date: Yes Travel Risk - International Travel Have you traveled outside of the country in past 3 weeks: No - Coronavirus Screening Are you exhibiting any of the following symptoms?: No - Vaccine Status Have you recieved a Covid-19 vaccination: Yes Air Twister Winder: Moderna - Vaccination Dates Date of 2cond Vaccination (if applicable): 2020 - Review of Systems Constitutional: No Fever, No Chills Eyes: No Symptoms Ears, Nose, & Throat: No Symptoms Respiratory: No Cough, No Dyspnea Cardiac: No Chest Pain, No Edema, No Syncope Abdominal/Gastrointestinal: No Abdominal Pain, No Nausea, No Vomiting, No Diarrhea Genitourinary Symptoms: No Dysuria Musculoskeletal: No Back Pain, No Neck Pain Skin: No Rash Neurological: No Dizziness, No Focal Weakness, No Sensory Changes Psychological: No Symptoms Endocrine: No Symptoms Hematologic/Lymphatic: No Symptoms Immunological/Allergic: No Symptoms All Other Systems: Reviewed and Negative - Past Medical History Pertinent Past Medical History: Yes Neurological History: No Pertinent History ENT History: No Pertinent History Cardiac History: Hypertension Respiratory History: Bronchitis, COPD, Emphysema Endocrine Medical History: No Pertinent History Musculoskeletal History: Arthritis GI Medical History: GERD, Hernia History: No Pertinent History Psycho-Social History: No Pertinent History Male Reproductive Disorders: Prostate Problems Other Medical History: CARDIOMYOPATHY - Past Surgical History Past Surgical History: Yes Neuro Surgical History: No Pertinent History Cardiac: Cardiac Catheterization Respiratory: No Pertinent History Gastrointestinal: Hernia Repair Genitourinary: No Pertinent History Musculoskeletal: No Pertinent History Male Surgical History: Vasectomy Other Surgical History: STRESS TEST ECHO AND HEART CATH inquinal hernia - Social History Smoking Status: Former smoker How long have you smoked: 30 yrs Exposure to second hand smoke: Yes Drug Use: none Patient Lives Alone: No - Nursing Vital Signs Nursing Vital Signs: Initial Vital Signs Temperature 97.4 F 12/24/22 16:04 Pulse Rate 92 H 12/24/22 16:04 Respiratory Rate 24 12/24/22 16:04 Blood Pressure 107/83 12/24/22 16:04 O2 Sat by Pulse Oximetry 95 12/24/22 16:04 Pain Scale Pain Intensity 0 - Physical Exam General Appearance: no apparent distress, alert Eye Exam: PERRL/EOMI, eyes nml inspection Ears, Nose, Throat Exam: normal ENT inspection, TMs normal, pharynx normal, moist mucous membranes Neck Exam: normal inspection, non-tender, supple, full range of motion Respiratory Exam: normal breath sounds, lungs clear, No respiratory distress Cardiovascular Exam: regular rate/rhythm, normal heart sounds, normal peripheral pulses Gastrointestinal/Abdomen Exam: soft, normal bowel sounds, No tenderness, No mass Rectal Exam: deferred Back Exam: normal inspection, normal range of motion, No CVA tenderness, No vertebral tenderness Extremity Exam: normal inspection, normal range of motion, pelvis stable Neurologic Exam: alert, oriented x 3, cooperative, normal mood/affect, nml cerebellar function, nml station & gait, sensation nml, No motor deficits Skin Exam: normal color, warm, dry, No rash Lymphatic Exam: No adenopathy SpO2 Interpretation: normal SpO2: 95 O2 Delivery: Room Air - Course Nursing assessment & vital signs reviewed: Yes Ordered Tests: Active Orders 24 hr Category Date Time Status CHEST WITHOUT CONTRAST [CT] Stat Exams 12/24/22 20:49 Completed CBC W DIFF Stat Lab 12/24/22 21:30 Completed CMP Stat Lab 12/24/22 21:30 Completed Lactic Acid Stat Lab 12/24/22 20:49 Ordered UA W/RFX UR CULTURE Stat Lab 12/24/22 18:20 Completed Lab/Rad Data: Laboratory Result Diagrams 12/24/22 21:30 12/24/22 21:30 Laboratory Results 12/24/22 12/24/22 12/24/22 Range/Units 21:30 21:30 18:20 WBC 9.0 (4.0-10.5) x10^3/uL RBC 4.38 (4.1-5.6) x10^6/uL Hgb 12.2 L (12.5-18.0) g/dL Hct 38.8 L (42-50) % MCV 88.6 (78-100) fL MCH 27.9 (26-32) pg MCHC 31.4 L (32-36) g/dL RDW 15.2 H (11.5-14.0) % Plt Count 395 (150-450) x10^3/uL MPV 9.1 (7.5-11.0) fL Gran % 62.8 (36.0-66.0) % Immature Gran % (Auto) 3.5 H (0.00-0.4) % Nucleat RBC Rel Count 0.0 (0.00-0.1) % Eos # (Auto) 0.33 (0-0.5) x10^3/uL Immature Gran # (Auto) 0.32 H (0.00-0.03) x10^3u/L Absolute Lymphs (auto) 2.02 (1.0-4.6) x10^3/uL Absolute Monos (auto) 0.62 (0.0-1.3) x10^3/uL Absolute Nucleated RBC 0.00 (0.00-0.01) x10^3u/L Lymphocytes % 22.4 L (24.0-44.0) % Monocytes % 6.9 (0.0-12.0) % Eosinophils % 3.7 (0.00-5.0) % Basophils % 0.7 (0.0-0.4) % Absolute Granulocytes 5.68 (1.4-6.9) x10^3/uL Basophils # 0.06 (0-0.4) x10^3/uL Sodium 140 (137-145) mmol/L Potassium 4.1 (3.5-5.1) mmol/L Chloride 108 H (98-107) mmol/L Carbon Dioxide 21 L (22-30) mmol/L Anion Gap 14.3 (5-15) MEQ/L BUN 23 H (9-20) mg/dL Creatinine 1.16 (0.66-1.25) mg/dL Estimated GFR > 60.0 ML/MIN Glucose 102 (74-106) mg/dL Calcium 8.4 (8.4-10.2) mg/dL Total Bilirubin 0.60 (0.2-1.3) mg/dL AST 21 (17-59) U/L ALT 16 (0-50) U/L Alkaline Phosphatase 72 (38-126) U/L Serum Total Protein 7.2 (6.3-8.2) g/dL Albumin 3.8 (3.5-5.0) g/dL Urine Color Yellow (Yellow) Urine Appearance Clear (Clear) Urine pH 5.5 (4.6-8.0) Ur Specific [place] 1.010 (1.005-1.030) Urine Protein Negative (Negative) Urine Glucose (UA) Negative (Negative) mg/dL Urine Ketones Negative (Negative) Urine Blood Negative (Negative) Urine Nitrite Negative (Negative) Urine Bilirubin Negative (Negative) Urine Urobilinogen 1.0 A (0.2) mg/dL Ur Leukocyte Esterase Negative (Negative) U Hyaline Cast (Auto) NONE SEEN (0-2) /LPF Urine Microscopic RBC 0-2 (0-5) /HPF Urine Microscopic WBC 0-2 (0-5) /HPF Ur Epithelial Cells None Seen (None Seen) /HPF Urine Bacteria None Seen (None Seen) /HPF Urine Culture Reflexed NO (NO) - Progress Progress: improved, re-examined Progress Note: 12/24/22 22:31 discussed results with pt and and that we do not have a cause and he needs furhter w/u and also f/u lymph nodes, right nodule and the swelling. they agree to medrol dospak after discussion of risks bnefits. Counseled pt/family regarding: lab results, diagnosis, need for follow-up, rad results Medical Desision Making - Independent Historian Additional History obtained from: Spouse - Diagnostic Testing Diagnostic test were ordered, analyzed, and reviewed by me: Yes Radiological Interpretation: Reviewed by me - Risk of complications The pt has a mod risk of morbidity or mortality based on: Need for prescription drug management - Departure Departure Disposition: Home Clinical Impression: UE swelling with rheum symptoms, right lung nodule, chest lymph nodes Condition: Good Critical Care Time: No Referrals: DOROTA FIGUEROA MD [Primary Care Provider] - Follow up/PCP as directed Instructions: Pulmonary nodule Additional Instructions: followup with your for iraida workup of the lymph nodes on CT and right lung nodule as well as to rule out a rheumatologic disorder. We have given you a steroid pack meantime to help symptoms. return meantime if not improving, short of breath or other concerns. Prescriptions: Methylprednisolone Packet [Medrol Dosepack] 4 mg PO UD #30 packet
[2022-12-24 21:32] LABS: Absolute Neutrophil Ct (ANC) 5.68 x10^3/uL (1.4-6.9); BASOPHIL % 0.7 % (0.0-0.4); Basophil (Absolute #) 0.06 x10^3/uL (0-0.4); Eosinophil % 3.7 % (0.00-5.0); Eosinophil (Absolute #) 0.33 x10^3/uL (0-0.5); Hematocrit 38.8 % (42-50); Hemoglobin 12.2 g/dL (12.5-18.0); IMMATURE GRAN # 0.32 x10^3u/L (0.00-0.03); IMMATURE GRAN % 3.5 % (0.00-0.4); Lymphocyte (Absolute #) 2.02 x10^3/uL (1.0-4.6); Lymphocytes % 22.4 % (24.0-44.0); Mean Cell Volume 88.6 fL (78-100); Mean Corpuscular Hemoglobin 27.9 pg (26-32); Mean Corpuscular Hgb Concent. 31.4 g/dL (32-36); Mean Platelet Volume 9.1 fL (7.5-11.0); Monocyte (Absolute #) 0.62 x10^3/uL (0.0-1.3); Monocytes % 6.9 % (0.0-12.0); Neutrophil % 62.8 % (36.0-66.0); Platelet Count 395 x10^3/uL (150-450); Red Blood Count 4.38 x10^6/uL (4.1-5.6); Red Cell Distribution Width 15.2 % (11.5-14.0)
[2022-12-24 21:44] LABS: ALBUMIN 3.8 g/dL (3.5-5.0); ALKALINE PHOSPHATASE 72 U/L (38-126); ANION GAP 14.3 MEQ/L (5-15); BLOOD UREA NITROGEN 23 mg/dL (9-20); CHLORIDE 108 mmol/L (98-107); Calcium 8.4 mg/dL (8.4-10.2); Carbon Dioxide 21 mmol/L (22-30); Creatinine 1 1.16 mg/dL (0.66-1.25); EST GLOMERULAR FILTRATION RATE > 60.0 ML/MIN; Glucose 102 mg/dL (74-106); Potassium 4.1 mmol/L (3.5-5.1); SGOT/AST 21 U/L (17-59); SGPT/ALT 16 U/L (0-50); SODIUM 140 mmol/L (137-145); Total Protein 7.2 g/dL (6.3-8.2)
--- NOTE | 2022-12-24 21:57 | XRAY ---
CLINICAL HISTORY:swelling of neck and UE looking fo COMPARISON:Chest CT scan dated 03/15/2019. TECHNIQUE:Contiguous 3.[address] images of the chest were acquired without administration of intravenous contrast. Coronal and sagittal reconstructions were obtained. FINDINGS: Centrilobular emphysematous changes were noted in both upper lobes. Coarse interstitial thickening was noted in bilateral upper lobes, predominantly in the anterior aspect, with multifocal areas of similar changes in the right middle lobe and left lower lobe in broncho vascular distribution with faint ground-glass haziness. This shows an interval increase in comparison with the previous study. Subpleural reticulations with mild haziness are noted in the posterior aspect of both basal regions, also with an interval increase from the prior study. A 4mm calcified nodule was seen in the right lower lobe. Small sub-centimetric calcified right hilar nodes were noted. A few subcentimetric non-specific pretracheal, paratracheal, prevascular, and carinal nodes were noted. No free or encysted pleural effusion. Heart size is normal, and there is no pericardial effusion. No pathologically enlarged mediastinal, hilar, or axillary lymph node was identified. The thoracic spine shows degenerative changes. There is no definite mass lesion in the chest wall. The scanned upper abdomen is unremarkable. IMPRESSION: 1. COPD. 2. Coarse interstitial thickening in bilateral upper lobes, predominantly in the anterior aspect, with multifocal areas of similar changes in the right middle lobe and left lower lobe in broncho vascular distribution with faint ground-glass haziness. These show interval progression from the prior chest CT scan. 3. Consider a sequelae of a prior infectious/inflammatory process. Clinical correlation is suggested. 4. Small 4 mm calcified nodule in the right lower lobe, no follow-up up suggested. Electronically Signed by: Natalie Moreno MD. (12/24/2022 20:56:21 [employer])
[2022-12-24 22:26] VITALS: BP 131/63; PULSE 80; RESP 23; O2SAT 95
== END 2022-12-24 22:41 | disposition home or self-care (01) ==
LOC: ED 15:46
DX: R59.0 Localized enlarged lymph nodes (principal); R91.1 Solitary pulmonary nodule; R60.0 Localized edema; I10 Essential (primary) hypertension; Z79.899 Other long term (current) drug therapy; Z79.52 Long term (current) use of systemic steroids
CPT/HCPCS: 36415; 71250; 80053; 81001; 83605; 85025; 99283

== ENCOUNTER 2023-11-02 19:53 | Emergency (ER) | payer MEDICARE ==
--- NOTE | 2023-11-02 20:02 | ERPHSYRPT ---
- History of Present Illness Time Seen by Provider: 11/02/23 20:01 Source: patient, family Exam Limitations: no limitations Physician History: This is an overweight 68-year-old white male patient of Dr. Figueroa and accidentally had a collision with his lawn more in the lawn more landing on his left lateral lower extremity below the knee. Per patient's , he did not lose consciousness. Patient has no headache he has no neck pain. Patient presents to the emergency department with pain, swelling, ecchymosis of his lateral left lower leg and lateral left ankle with abrasion at the lateral aspect of his left ankle. He also has abrasions and skin tears to his right upper extremity in the distal forearm on the right and the posterior/dorsal upper arm. Patient's tetanus status is not up-to-date. Patient has a history of COPD, gastroesophageal reflux disease, prostate issues and hypertension. Occurred: just prior to arrival Method of Injury: direct blow (From his riding lawn more) Quality: throbbing Severity of Pain-Max: moderate Severity of Pain-Current: moderate Extremities Pain Location: forearm: right, wrist: right, other: left (Lower leg and ankle laterally below the knee) Associated Symptoms: none Allergies/Adverse Reactions: lisinopril Allergy (Verified 11/02/23 19:56) oxytetracycline [From Terramycin] Allergy (Verified 11/02/23 19:56) oxytetracycline HCl [From Terramycin] Allergy (Verified 11/02/23 19:56) Home Medications: Aspirin 81 gm Chew [Baby Aspirin 81 mg Chew] 81 mg PO DAILY 02/11/15 [History] Isosorbide Mononitrate 30 mg [Imdur 30 MG] 30 mg PO DAILY 02/11/15 [History] Albuterol Common Canister [Ventolin Common Canister] 1 puff IH UD PRN 04/22/18 [History] Tamsulosin HCl 0.4 mg PO DAILY 04/22/18 [History] Amlodipine Besylate 5 mg [Norvasc 5 mg] 10 mg PO DAILY 10/23/22 [History] Fluticasone/Umeclidin/Vilanter [Trelegy Ellipta 100-62.5-25] 1 puff HE DAILY 10/23/22 [History] Ipratropium/Albuterol Sulfate [Combivent Respimat Common Canister] 1 puff IH QID 10/23/22 [History] Nintedanib Esylate [Ofev] 100 mg PO UD 10/23/22 [History] Omeprazole 20 mg PO DAILY 10/23/22 [History] Hx Tetanus, Diphtheria Vaccination/Date Given: Yes Hx Influenza Vaccination/Date Given: Yes Hx Pneumococcal Vaccination/Date Given: Yes Travel Risk - International Travel Have you traveled outside of the country in past 3 weeks: No - Emerging Infectious Disease Are you exhibiting symptoms associated with any current EIDs: No - Vaccine Status Hx Covid Vaccintation/Booster/Date Given: No - Review of Systems Constitutional: No Symptoms Eyes: No Symptoms Ears, Nose, & Throat: No Symptoms Respiratory: No Symptoms Cardiac: No Symptoms Abdominal/Gastrointestinal: No Symptoms Genitourinary Symptoms: No Symptoms Musculoskeletal: Injury (Left lower leg lateral aspect and left ankle lateral aspect) Skin: Other (No lacerations. Skin tearsmultiple) Neurological: No Symptoms Psychological: No Symptoms Endocrine: No Symptoms Hematologic/Lymphatic: No Symptoms Immunological/Allergic: No Symptoms All Other Systems: Reviewed and Negative - Past Medical History Pertinent Past Medical History: Yes Neurological History: No Pertinent History ENT History: No Pertinent History Cardiac History: Hypertension Respiratory History: Bronchitis, COPD, Emphysema Endocrine Medical History: No Pertinent History Musculoskeletal History: Arthritis GI Medical History: GERD, Hernia History: No Pertinent History Psycho-Social History: No Pertinent History Male Reproductive Disorders: Prostate Problems Other Medical History: CARDIOMYOPATHY - Past Surgical History Past Surgical History: Yes Neuro Surgical History: No Pertinent History Cardiac: Cardiac Catheterization Respiratory: No Pertinent History Gastrointestinal: Hernia Repair Genitourinary: No Pertinent History Musculoskeletal: No Pertinent History Male Surgical History: Vasectomy Other Surgical History: STRESS TEST ECHO AND HEART CATH inquinal hernia - Social History Smoking Status: Former smoker How long have you smoked: 30 yrs Exposure to second hand smoke: Yes Drug Use: none Patient Lives Alone: No - Nursing Vital Signs Nursing Vital Signs: Initial Vital Signs Temperature 98.7 F 11/02/23 19:57 Pulse Rate 107 H 11/02/23 19:57 Respiratory Rate 26 H 11/02/23 19:57 Blood Pressure 119/82 11/02/23 19:57 O2 Sat by Pulse Oximetry 97 11/02/23 19:57 Pain Scale Pain Intensity 8 - Physical Exam General Appearance: mild distress, alert, anxiety, obese Eyes, Ears, Nose, Throat Exam: normal ENT inspection, moist mucous membranes Neck Exam: normal inspection, non-tender, supple, full range of motion Cardiovascular/Respiratory Exam: chest non-tender, no respiratory distress Abdominal Exam: non-tender Back Exam: normal inspection, normal range of motion, No CVA tenderness, No vertebral tenderness Shoulder Exam: normal inspection, non-tender, no evidence of injury, normal ROM Elbow/Forearm Exam: normal ROM, soft tissue tenderness (Abrasion and skin tears to the dorsal aspect right forearm and wrist. Skin tear abrasion (mild) volar aspect right upper arm), No deformity Wrist Exam: non-tender, normal ROM, No no evidence of injury Hand Exam: normal inspection, non-tender, no evidence of injury, normal ROM Neuro/Tendon Exam: normal sensation, normal motor functions, normal tendon functions Mental Status Exam: alert, oriented x 3, cooperative Skin Exam: abrasion, ecchymosis (Swelling and ecchymosis lateral aspect left lower leg below the knee and left ankle laterally), other (Continuesmultiple right upper extremity as described above. Abrasion left lateral ankle.) SpO2 Interpretation: normal O2 Delivery: Room Air - Course Nursing assessment & vital signs reviewed: Yes Ordered Tests: Active Orders 24 hr Category Date Time Status ANKLE (3 VIEWS) Stat Exams 11/02/23 20:26 Taken LOWER LEG Stat Exams 11/02/23 20:26 Taken Medication Summary Discontinued Medications Generic Name Dose Route Start Last Admin Trade Name Kylie PRN Reason Stop Dose Admin Diphtheria/Tetanus/Acell Pertussis 0.5 ml 11/02/23 20:31 11/02/23 20:43 Tdap --Diph,Pertuss(Acell),Tet Vac/Pf 0.5 Ml Vial IM 11/02/23 20:32 0.5 ml .ONCE ONE Administration Diphtheria/Tetanus/Acell Pertussis Confirm 11/02/23 20:40 Tdap --Diph,Pertuss(Acell),Tet Vac/Pf 0.5 Ml Vial Administered 11/02/23 20:41 Dose 0.5 ml IM .STK-MED ONE Morphine Sulfate 4 mg 11/02/23 20:31 11/02/23 20:45 Morphine Sulfate 4 Mg/Ml Injection IV 11/02/23 20:32 4 mg STAT ONE Administration Morphine Sulfate Confirm 11/02/23 20:40 Morphine Sulfate 4 Mg/Ml Injection Administered 11/02/23 20:41 Dose 4 mg .ROUTE .STK-MED ONE Ondansetron HCl 4 mg 11/02/23 20:31 11/02/23 20:45 Ondansetron Hcl 4 Mg/2 Ml Vial IV 11/02/23 20:32 4 mg STAT ONE Administration Ondansetron HCl Confirm 11/02/23 20:39 Ondansetron Hcl 4 Mg/2 Ml Vial Administered 11/02/23 20:40 Dose 4 mg .ROUTE .STK-MED ONE - Progress Progress: improved, pain not gone completely, re-examined Progress Note: 11/02/23 20:52 My medical decision making in the assignment of low to moderate complexity of this patient's medical issue today is based on review of the patient's past medical history, reviewed the patient's medication list, reviewed patient drug allergy list, history present also physical findings on examination. Their workup in this patient includes x-ray of the left lower leg (tibfib) and left ankle. Differential diagnoses includes but is not limited to skin tears, abrasions, fracture and/or dislocation left tib-fib, left ankle 11/02/23 21:02 I interpreted the preliminary report on the patient's left ankle. There is soft tissue swelling lateral to the lateral malleolus. There is no evidence of any acute fracture or dislocation. I interpreted the preliminary report on the patient's left lower leg. There is soft tissue swelling lateral to the fibula. There is no evidence of any acute fracture or dislocation. Counseled pt/family regarding: diagnosis, need for follow-up, rad results Medical Desision Making - Independent Historian Additional History obtained from: Spouse - Diagnostic Testing Diagnostic test were ordered, analyzed, and reviewed by me: Yes Radiological Interpretation: Interpreted by me - Risk of complications The pt has a mod risk of morbidity or mortality based on: Need for prescription drug management - Departure Departure Disposition: Home Clinical Impression: Skin tear, Skin abrasion, Contusion of left leg Condition: Stable Critical Care Time: No Referrals: DOROTA FIGUEROA MD [Primary Care Provider] - Follow up/PCP as directed Additional Instructions: Keep all abrasion and skin tear sites clean daily with soap and water. Apply a thin layer of antibiotic ointment over each 1 after you wash the site with soap and water, blot dry as a watch hairspring assembler to dry the site and then apply the antibiotic ointment of choice. Ice pack to tender swollen bruised area 3-4 times a day for the next 48 hours. Weightbearing as tolerated. Use the crutches to help in ambulation. Take your pain medicine as prescribed and you may add ibuprofen 600 mg orally 3 times a day for 4 days if there are no contraindications. Call your primary care provider on 11/05/2023, to make arrangements for follow-up appointment for further evaluation and management to be seen in the next 3 to 5 days. Prescriptions: Oxycodone HCl/Acetaminophen [Percocet 5-325 mg Tablet] 1 each PO Q8H PRN PRN #6 tablet MDD 3 PRN Reason: Moderate To Severe Pain Cephalexin Mh 500 mg [Keflex 500 mg] 500 mg PO TID #15 cap
[2023-11-02 20:24] VITALS: TEMP 98.7
[2023-11-02] MEDS ORDERED: Zofran 4 MG/2 ML VIAL ONE (20:39)
[2023-11-02] MEDS ORDERED: MORPHINE SULFATE 4 MG INJ ONE (20:40)
[2023-11-02] MEDS ORDERED: Adacel Vial IM ONE (20:40)
[2023-11-02] MEDS: Adacel Vial IM ONE (20:43)
[2023-11-02] MEDS: Zofran 4 MG/2 ML VIAL IV ONE (20:45)
[2023-11-02] MEDS: MORPHINE SULFATE 4 MG INJ IV ONE (20:45)
[2023-11-02] MEDS ORDERED: PERCOCET TABLET 5/325MG ONE (21:17)
[2023-11-02] MEDS ORDERED: KEFLEX 500 MG ONE (21:18)
[2023-11-02] MEDS: KEFLEX 500 MG PO ONE (21:22)
[2023-11-02] MEDS: PERCOCET TABLET 5/325MG PO STA (21:22)
[2023-11-02] MEDS ORDERED: BACIGUENT PACKET ONE ×2 (21:29→21:46)
[2023-11-02] MEDS: BACIGUENT PACKET TP ONE (21:31)
--- NOTE | 2023-11-02 21:32 | XRAY ---
Indication: Pain and swelling following injury. Comparison: None 2 view left lower leg demonstrates osteopenia and mild scattered vascular calcifications. No other bony, articular, or soft tissue abnormalities.
--- NOTE | 2023-11-02 21:34 | XRAY ---
Indication: Pain and swelling following injury. Comparison: None 3 view left ankle demonstrates osteopenia, mild anterolateral soft tissue swelling, small heel spurs, and mild scattered vascular calcifications. No other bony, articular, or soft tissue abnormalities.
[2023-11-02 21:43] VITALS: BP 115/84
[2023-11-02 22:27] VITALS: PULSE 92; RESP 26; O2SAT 96
== END 2023-11-02 22:28 | disposition home or self-care (01) ==
LOC: ED 19:53
DX: S80.12XA Contusion of left lower leg, initial encounter (principal); S90.512A Abrasion, left ankle, initial encounter; S51.811A Laceration without foreign body of right forearm, initial encounter; S61.511A Laceration without foreign body of right wrist, initial encounter; S41.111A Laceration without foreign body of right upper arm, initial encounter; W20.8XXA Other cause of strike by thrown, projected or falling object, initial encounter; I10 Essential (primary) hypertension; Z79.899 Other long term (current) drug therapy; Z23 Encounter for immunization
CPT/HCPCS: 73590; 73610; 90471; 90715; 96374; 96375; 99284; J2270; J2405; A9270-GY

== ENCOUNTER 2024-01-17 11:44 | Day surgery (SDC) | payer MEDICARE ==
[~2024-01-17 11:44] MED LIST: DIPRIVAN 200 MG/20 ML IV ONE; Marcaine Mpf 0.5% Vial 30 Ml ONE; Sensorcaine 0.25% 10 ML ONE; Versed 2 MG/2 ML Injection ONE; XYLOCAINE 1% HCL 20 ML MDV ONE
[2024-01-17] MEDS ORDERED: CLINDAMYCIN-D5W 900 MG/50 ML*** 900 MG/50 ML BAG IV ONE (12:03)
[2024-01-17] MEDS: CLINDAMYCIN-D5W 900 MG/50 ML*** 900 MG/50 ML BAG IV ONE (12:10)
[2024-01-17] MEDS: Lactated Ringers 1,000 ML IV SCH (12:10)
[2024-01-17 12:35] LABS: Hematocrit 38.9 % (40.1-51.0); Hemoglobin 12.5 g/dL (13.7-17.5); Mean Cell Volume 85.1 fL (79.0-92.2); Mean Corpuscular Hemoglobin 27.4 pg (25.7-32.2); Mean Corpuscular Hgb Concent. 32.1 g/dL (32.3-36.5); Mean Platelet Volume 9.1 fL (9.4-12.4); Platelet Count 356 x10^3/uL (163-337); Red Blood Count 4.57 x10^6/uL (4.63-6.08); White Blood Count 8.9 x10^3/uL (4.23-9.07)
[2024-01-17] MEDS ORDERED: Versed 2 MG/2 ML Injection ONE (12:35)
[2024-01-17] MEDS ORDERED: SUBLIMAZE 100 MCG/2 ML ONE ×3 (12:44→13:52)
[2024-01-17 12:48] LABS: ALBUMIN 3.8 g/dL (3.5-5.0); BILIRUBIN,TOTAL 0.9 mg/dL (0.2-1.3); Calcium 8.9 mg/dL (8.4-10.2); Creatinine 1 1.11 mg/dL (0.66-1.25); EST GLOMERULAR FILTRATION RATE 71.4 ML/MIN; Potassium 4.1 mmol/L (3.5-5.1); Total Protein 7.2 g/dL (6.3-8.2)
[2024-01-17] MEDS ORDERED: DIPRIVAN 200 MG/20 ML IV ONE ×2 (12:58→13:13)
[2024-01-17 14:31] VITALS: RESP 16; TEMP 97
[2024-01-17 14:42] VITALS: BP 100/61; PULSE 71; O2SAT 95
--- NOTE | 2024-01-20 18:39 | OP ---
SURGERY DATE/TIME: 01/17/2024 [id number] PREOPERATIVE DIAGNOSES: 1) Chronic non-pressure ulceration, left ankle. 2) Venous insufficiency. 3) Osteomyelitis. POSTOPERATIVE DIAGNOSES: 1) Chronic non-pressure ulceration, left ankle. 2) Venous insufficiency. 3) Osteomyelitis. PROCEDURE: 1) Incision and drainage to level of bone, left ankle. 2) Application of negative pressure wound VAC therapy. SURGEON: Jarad Daniel DPM PHYSICIAN OFFICE NURSE: 1) JULIANNA Blankenship 2) Bong Jesus NP PHYSICIAN OFFICE NURSE ROLE: Wound VAC application. ANESTHESIA: Monitored anesthesia care with an intraoperative local block. HEMOSTASIS: Pressure dressing. ESTIMATED BLOOD LOSS: Approximately 5 mL. MATERIALS: [employer] Wound VAC. INJECTABLES: 10 mL of 1:1 mixture of 1% lidocaine plain and 0.5% bupivacaine plain. INDICATIONS: The patient is a very pleasant 68-year-old male who presented to my service after a 2 month history of a chronic nonhealing ulceration to the left lower extremity. Patient was in his garage and he bumped into the blade of a planning supervisor and, as a result, developed a wound. Patient has a history of venous insufficiency to the bilateral lower extremities which was exacerbated during this time period and a wound soon thereafter developed. As a result, patient went to his primary care who treated this conservatively for some period of time, however, there was minimal improvement and he was referred to my service. On inspection of the wound, there was a positive probe to bone and patient was sent for MRI and vascular studies in order to assess wound healing potential and for osteomyelitis. As far as the MRI, this demonstrated no significant uptake on T2 or dropout on T1; however, with the positive probe to bone, speculation is still relatively high for the possibility of osteomyelitis as there has been some relative infection early on in the process with the positive probe to bone test. From that standpoint, we discussed options of proceeding and would like to proceed with the most conservative aspect. Given his vascular studies demonstrated significant adequate blood flow for wound healing, the decision was made for an aggressive wound debridement down to the level of bone, obtaining a bone biopsy, and application of a wound VAC to pull the vascular channels to the surface of the wound and hopefully promote granulation tissue. Patient has been made aware of all risks, complications, and benefits of surgical intervention at this time including but not limited to infection, hematoma, seroma, possibility of delayed wound healing, non-wound healing, and possible need for further surgical intervention at a later date. No guarantees were provided as to the outcome. However, patient's health status and comorbidities are seemingly within the reason with the expectation of an uncomplicated healing process. With that being said, plenty of time was allowed for the patient to ask questions, which were answered to his apparent satisfaction. It was at this time we decided to proceed. DESCRIPTION OF PROCEDURE AND FINDINGS: Patient was brought into the operating room, placed on the operating room table in the supine position. At this time, monitored anesthesia care was administered and the patient was adequately sedated. The left lower extremity was prepped and draped in the typical sterile fashion and lowered onto the surgical field. At this time, a 10 mL block was injected in a V block-type fashion to the left ankle localizing the area where the wound was present. From that standpoint, a combination of curettes, rongeurs, and a 15 blade were utilized to debride the devitalized tissue at the surface of the wound as well as debride the bone. Decision was made after a positive probe to bone test was once again appreciated to obtain a bone biopsy from the exposed bone at the lateral aspect of the talar head. From that standpoint, this was passed off the field for pathological assessment. Following, this 1 L of Bactisure was utilized to flush the surgical site and 3 L of sterile saline were utilized to flush the surgical site once again. Following this, an application of a negative pressure wound VAC therapy was accomplished, draping the wound first and then utilizing a bolster dressing and, once pad was secured and the wound VAC was connected, no appreciated leaks were identified at pressure of 125 mmHg. From that standpoint, the patient was then placed in a multilayer compression dressing. Following this, the patient was reversed from anesthesia and returned to the postoperative anesthesia care unit with vital signs stable and vascular status intact. Patient handled the anesthesia as well as the procedure without significant complications. Postoperative orders as indicated in the patient's discharge chart.
== END 2024-01-17 15:10 | disposition home or self-care (01) ==
LOC: SDC 11:44
PROVIDERS: ATTEND Podiatrist Foot & Ankle Surgery
DX: I87.2 Venous insufficiency (chronic) (peripheral) (principal); M86.9 Osteomyelitis, unspecified; L97.329 Non-pressure chronic ulcer of left ankle with unspecified severity
CPT/HCPCS: 27607; 36415; 80053; 85027; 93005; 97605; A6260; J2250; J2704; J3010